=== PATIENT | male | born 1960 | race Caucasian/White ===

== ENCOUNTER 2020-03-15 00:23 | Observation (INO) | payer OTHER ==
[~2020-03-15] VITALS: Ht 175.3 cm; Wt 105.5 kg
[2020-03-15] VITALS (14 sets, daily range): BP systolic 133–190; BP diastolic 77–100
[2020-03-15] MEDS ORDERED: ALLOPURINOL 30300 M1 PO (00:36)
[2020-03-15] MEDS ORDERED: TOPROL XL50 MG PO (00:36)
[2020-03-15] MEDS ORDERED: ATORVASTATIN CA10 MG PO (00:37)
[2020-03-15 01:17] LABS: BASOPHILS 0.5 % (0.0-2.0); HEMOGLOBIN 17.7 gm/dL (14.0-18.0); PLATELET COUNT 101 thou/uL (150-400); WBC 7.6 thou/uL (4.0-11.0)
[2020-03-15 01:19] LABS: ABSOLUTE NEUTROPHILS 4.4 thou/uL (1.4-8.2); ANION GAP 8 mmol/L (7-16); BUN 19 mg/dL (7-18); CHLORIDE 108 mmol/L (98-107); CO2 28 mmol/L (21-32); CREATININE 1.1 mg/dL (0.7-1.3); EOSINOPHILS 2.6 % (0.0-3.0); GLUCOSE 131 mg/dL (74-106); HEMATOCRIT 50.9 % (42.0-52.0); LYMPHOCYTES 32.1 % (24.0-44.0); MCH 31.2 pg (26.0-34.0); MCHC 34.9 g/dL (28.0-37.0); MCV 89.4 fL (80.0-100.0); MONOCYTES 6.9 % (1.0-8.0); POLYS 57.9 % (36.0-66.0); POTASSIUM 3.6 mmol/L (3.5-5.1); RBC 5.69 mil/uL (4.50-6.00); RDW 15.1 % (10.5-14.5); SODIUM 144 mmol/L (136-145)
[2020-03-15 01:29] LABS: ALBUMIN 3.6 g/dL (3.4-5.0); MAGNESIUM 2.1 mg/dL (1.8-2.4); SGOT 36 U/L (15-37); SGPT 74 U/L (30-65); TOTAL BILIRUBIN 0.6 mg/dL (<0.1-1.0); TOTAL PROTEIN 6.6 g/dL (6.4-8.2); TROPONIN-I <0.06 ng/mL (<0.06)
[2020-03-15] MEDS ORDERED: ASA81BEC PO (02:34)
--- NOTE | 2020-03-15 06:37 | NUR ---
ASSESSMENT: PT ARRIVED TO THE UNIT FROM ED ACCOMAPANIED BY STAFF. PT IS ALERT AND ORIENT TIMES FOUR. ULRICH. UP WITH STEADY GAIT. DENIES CP, SOB AND N/V. PT REFUSESD IVF STATING THAT HE DOES NOT NEED THEM AND THE IS WAITING FOR THE DR KYLE TO SEE HIM AND THAT HE WISHES TO GET SOME SLEEP. REFRIGERATOR ROOM CLERK DILLON AT THE BEDSIDE WITH ORDERS. PT IS CURRENTLY NPO WITH DIET HH TO RESUME 03/16 PER ORDERS. SR PER MONITOR, WILL CONTINUE TO MONITOR.
[2020-03-15 08:21] LABS: CHOLESTEROL 93 mg/dL (<200); HDL CHOLESTEROL 24 mg/dL (>40); LDL CHOLESTEROL 34 mg/dL (<100); TC:HDL 3.9 Ratio (Not establshd); TRIGLYCERIDE 175 mg/dL (<150); VLDL 35 mg/dL (<40)
[2020-03-15] MEDS ORDERED: BENICAR20 MG PO (09:36)
--- NOTE | 2020-03-15 09:59 | EKG ---
[facility] [place] [address] ELECTROCARDIOGRAM REPORT Name: DANNA BABIN Room #: 216-P ADM IN M.R.#: [id number] Admission: 03/15/20 Attend Phys: Rohit Dorado MD Discharge: Date of : 62 Report #: [id number] THIS REPORT FOR: cc: João Bernstein MD, Rene P. MD Lundgren,Ochoa Ruiz MD [facility] ~ THIS REPORT FOR: //name// [facility] ED Test Date: 2020-03-15 Test Time: 00:28:19 Pat Name: DANNA BABIN Department: Room: 216 Gender: M Party Host/Hostess: MESFIN : 1960 Requested By: Sharif De Los Santos Order Number: [id number] MD: Ochoa Carter Measurements Intervals [place] Rate: 73 P: 38 HI: 174 QRS: 11 QRSD: 101 T: 89 QT: 410 QTc: 452 Interpretive Statements Sinus rhythm Nonspecific T abnormalities, lateral leads Artifact in lead(s) V1,V2 and baseline wander in lead(s) V1 No previous ECG available for comparison Electronically Signed On 03-15-2020 9:57:45 CDT by Ochoa Carter [email or web address] <ELECTRONICALLY SIGNED> By: Ochoa Carter MD, [facility] 03/15/20 0957 0028 0028 Ochoa Carter MD, FAC /EPI
--- NOTE | 2020-03-15 10:36 | CATHLAB ---
[facility] [place] [address] INVASIVE PROCEDURE REPORT Name: DANNA BABIN Room #: 216-P ADM IN M.R.#: [id number] Admission: 03/15/20 Attend Phys: Rohit Dorado MD Discharge: Date of : 62 Report #: [id number] THIS REPORT FOR: cc: João Bernstein MD, Rene P. MD Lundgren, Craig H. MD [facility] ~ APPROVED REPORT Study performed: 03/15/2020 08:48:50 Patient Details Patient Status: In-Patient Room #: The patient is a 59 year-old male Event Personnel Ochoa Carter Natural Fabricator, Sabrina Painter RN RN, Jaimee Evans Jackson, Sherra RTAsuncion Monitor Procedures Performed Art Access - R femoral artery* Left Heart Cath w/or w/o Coronaries [id number] [facility] Hemostasis w/ Mynx 58596 Initial Mod Sed Same Phys/QHP Gr5y 095151 98940 Mod Sed Same Phys/QHP Ea 688432 Indication Chest pain Procedure Narrative The Right Groin^ was infiltrated with 1% Lidocaine subcutaneous anesthesia. A PINNACLE 6FR Sheath #[id number] sheath was inserted into the RFA^. Coronary angiography was performed using coronary diagnostic catheters. The right coronary system was accessed and visualized with a 6FR JR 5 #[id number] catheter. The left coronary system was accessed and visualized with a JL4 catheter. The left ventricle was accessed and visualized with a PIGTAIL catheter. Left ventriculogram was performed in 30 degree projection. The patient tolerated the procedure well and there were no complications associated with the procedure. A hematoma occurred. Intraoperative Conscious Sedation Sedation start time: 832 Case end Time: 919 Fentanyl 50 mcg Versed 1 mg Fluoro Time: 4.04 minutes Dose: DAP 6218.40 cGycm2 713 mGy [facility] [place] [address] INVASIVE PROCEDURE REPORT Name: TALYADANNA Asuncion Room #: 216-P [facility] IN [facility]#: [id number] Admission: 03/15/20 Attend Phys: Rohit Dorado MD Discharge: Date of : 62 Report #: [id number] Contrast Type and Amount: Omnipaque 130 ml Coronary Angiography The patient's coronary anatomy is right dominant. Diagnostic Cath Left Main Normal left main LAD Normal left anterior descending Diagonal 1 Small to moderate first diagonal branch, angiographically normal Diagonal 2 Small second diagonal branch, angiographically normal Circumflex Large circumflex comprised of a single large marginal branch OM1 Large OM1, angiographically normal Right Coronary Normal dominant right coronary R PDA Normal posterior descending RPLV Normal posterior lateral branch Ramus Large ramus branch, normal Left Ventriculography The left ventricle is normal in size with normal contractility. The left ventricular ejection fraction is estimated to be 60-65%. Left ventricular wall motion abnormalities are not present. There is no mitral insufficiency. Hemodynamics The aortic pressure is 157/77 mmHg with a mean of 108 mmHg. The left ventricular pressure is 154/3 mmHg with a mean of mmHg. The left ventricular end diastolic pressure is 22 mmHg. Conclusion 1. Normal global and regional left ventricular systolic function. 2. Normal left main 3. Normal coronary vasculature. Right coronary dominant circulation Recommendations [facility] <ELECTRONICALLY SIGNED> By: Ochoa Carter MD, FACC 03/15/20 1035 1035 1035 Ochoa Carter MD, FACC /INF
--- NOTE | 2020-03-15 13:20 | NUR ---
RECEIVED PT'S CARE AROUND 0710; PT. ON BED; AOX4; AROUND [address] FOR CARDIAC CATH; AM MEDICATIONS GIVEN; GONE FOR PROCEDURE; PARTIAL ASSESSMENT DONE; BACK CLOSE TO 1000; ASSESSMENT COMPLETE; MEDICATION GIVEN; R. GROIN AREA C/D/I; NO HEMATOMA; EDUCATED ABOUT BED REST FOR 3H; CALLING IF FEELING PAIN OVER R. GROIN AREA; HOLDING PRESSURE WHEN COUGHING OR LAUGHING HARD; ST. UNDERSTANDING; NO HEMATOMA OVER R. GROIN; D/C ORDERS ON PLACED; PT. NOTIFIED; SR ON THE MONITOR; NO C/O PAIN; ASSESSMENT CHARGED; FOLLOWED POC;
[2020-03-16 01:07] LABS: GLYCOHEMOGLOBIN (HGB A1C) 5.1 % (4.8-5.6)
== END 2020-03-15 14:06 | disposition home or self-care (01) ==
LOC: ER 00:23 → 2N 02:11 → EROBS 02:11 → 2N 02:11
PROVIDERS: Emergency Medicine; Nurse Practitioner Family; ADMIT Hospitalist
DX: R07.89 Other chest pain (principal); I10 Essential (primary) hypertension; E78.5 Hyperlipidemia, unspecified; G47.33 Obstructive sleep apnea (adult) (pediatric); D69.6 Thrombocytopenia, unspecified; M10.9 Gout, unspecified; I25.10 Atherosclerotic heart disease of native coronary artery without angina pectoris; E78.00 Pure hypercholesterolemia, unspecified